=== PATIENT | female | born 2005 | race Caucasian/White ===

== ENCOUNTER 2024-02-08 19:56 | Emergency (ER) | payer OTHER, SELFPAY ==
[2024-02-08 20:07] VITALS: BP 116/71
--- NOTE | 2024-02-08 23:00 | ED.GENMED ---
History of Present Illness
General
Chief Complaint: Skin Problem
Source: patient
Exam Limitations: none
Time Seen by Provider: 02/08/24 21:45
Nursing documentation reviewed up to this point in time: agreed with
History of Present Illness
History of Present Illness:
18-year-old female without significant past medical history presenting to the emergency department today with concerns of redness swelling discomfort to the left lower extremity at the site of the recent tattoo that was performed 1 week ago.
Symptoms over the past 3 days. Denies systemic symptoms fevers chest pain shortness of breath or purulent drainage.
Review of Systems
Review of Systems
Allergies reviewed?: Yes
All Other Systems: ROS reviewed and negative except as documented in HPI and ROS
Phy Exam
Physical Exam
Physical Exam:
GENERAL: Alert , in no apparent distress
EYE: pupils equal and reactive
NECK: Supple, no significant adenopathy.
ENT: o/p clr, mmm.
CARDIAC: Regular rate and rhythm .
LUNGS: Clear breath sounds bilaterally, no acute respiratory distress, no wheezes/rales/rhonchi
ABDOMEN: Soft, without focal tenderness, no r/g, no cvat
NEUROLOGICAL: Alert and oriented, no focal neuro deficits
SKIN: Tattoo to the left medial mendez. Surrounding redness around the area with tenderness palpation no fluctuance or induration. Does not extend from the local area of the tattoo. Warm and dry, skin intact.
MUSCULOSKELETAL: No edema, well perfused.
PSYCH: Normal and appropriate interaction.
Course
Orders/Labs/Results
Orders:
Orders
02/08/24 22:52
Cephalexin Monohydrate [Keflex] 500 mg PO NOW STA
Sulfamethox./Trimethoprim Ds [Bactrim Ds 800 mg/160 mg] 2 tablet PO NOW STA
Vital Signs
Initial and Last Documented VS:
Initial Vital Signs
Temp Pulse Resp BP Pulse Ox
98.3 F 69 16 116/71 99
02/08/24 20:07 02/08/24 20:07 02/08/24 20:07 02/08/24 20:07 02/08/24 20:07
Last Documented Vital Signs
Temp Pulse Resp BP Pulse Ox
98.3 F 69 16 116/71 99
02/08/24 20:07 02/08/24 20:07 02/08/24 20:07 02/08/24 20:07 02/08/24 20:07
MDM/Problems Addressed
MDM/Problems Addressed:
18-year-old female presenting to the emergency department today with concerns of swelling redness to the left lower extremity and site of recent tattoo from 1 week ago symptoms starting roughly 3 days ago. Vital signs normal afebrile no systemic
symptoms. He does appear to have a likely surrounding infection to the recent tattoo area. Plan to start antibiotics and close outpatient follow-up. Return precautions given.
*Critical Care Note
Total Time (30-74mins, 75-104mins- exclusive of procedures): Not Applicable
ED Attending Note
-
Portions of this chart may have been created with voice recognition software.� Occasional wrong word or��sound alike� substitutions may have occurred due to the inherent limitations of voice recognition software.
Discharge Plan
Departure
Patient Disposition: Home (Routine Discharge)
Date of Disposition: 02/08/24
Time of Disposition: 23:01
Patient with high blood pressure during this ER visit?: No
Condition: Good
Covid-19: Not Applicable
Discharge Problem:
Local infection of the skin and subcutaneous tissue, unspecified
Instructions: Cellulitis (Skin Infection), Adult (DC)
Prescriptions:
New
cephalexin 500 mg capsule
500 mg PO QID 7 Days Qty: 28 0RF
sulfamethoxazole-trimethoprim [Bactrim DS] 800-160 mg tablet
1 tab PO BID 7 Days Qty: 14 0RF
mupirocin 2 % ointment
1 applic topical BID Qty: 50 0RF
Referrals:
SILVIANO LEIJA [Other]
Activity Restrictions/Additional Instructions:
You came to the emergency department today for concerns of an infection to your recently tattooed area. Please use the prescribed antibiotics given the area clean covered and return for any worsening, new or concerning symptoms.
Interventions
Interventions:
*Risk Screen - Suicide Last Done: 02/08/24 20:07
*General Assessment Last Done: 02/08/24 21:34
*Neglect/Abuse Screening Last Done: 02/08/24 20:07
*ED COVID-19 Vaccine History Last Done: 02/08/24 20:07
ED-Skin Assessment Last Done: 02/08/24 21:34
Discharge Date and Time
Print Language: POLISH
[2024-02-08] MEDS: BACTRIM DS 800 MG/160 MG 2 TABLET PO (23:05)
[2024-02-08] MEDS: KEFLEX 500 MG PO (23:06)
[2024-02-08 23:32] VITALS: BP 124/79
== END 2024-02-08 23:33 | disposition home or self-care (01) ==
LOC: EMR 19:56
PROVIDERS: EMERGENCY PHYSICIAN Emergency Medicine
DX: L08.9 Local infection of the skin and subcutaneous tissue, unspecified (principal); R22.42 Localized swelling, mass and lump, left lower limb
CPT/HCPCS: 99282